=== PATIENT | male | born 1955 | race Caucasian/White ===

== ENCOUNTER 2022-04-02 09:30 | Outpatient (CLI) | payer MEDICARE | END 2022-04-02 09:31 | disposition home or self-care (01) | LOC: PET 09:30 | PROVIDERS: ATTEND Internal Medicine Hematology & Oncology | DX: C25.2 Malignant neoplasm of tail of pancreas (principal); C78.7 Secondary malignant neoplasm of liver and intrahepatic bile duct; C78.1 Secondary malignant neoplasm of mediastinum; C78.02 Secondary malignant neoplasm of left lung; C78.01 Secondary malignant neoplasm of right lung | CPT/HCPCS: 78815; A9552 ==

== ENCOUNTER 2022-04-03 08:32 | Day surgery (SDC) | payer MEDICARE ==
[2022-04-03 08:45] LABS: #Eosinphils 0.4 thou/uL (0.0-0.7); #Lymphocytes 1.4 thou/uL (1.20-3.40); #Monocytes 0.9 thou/uL (0.11-0.59); #Neutrophils 4.3 thou/uL (1.40-6.50); %Basophils 0.1 % (0.0-1.0); %Eosinophils 6.2 % (0.0-10.0); %Lymphocytes 19.2 % (21.0-51.0); %Monocytes 13.2 % (0.0-10.0); %Neutrophils 61.3 % (42.0-75.0); Hemoglobin 12.9 g/dL (14.0-18.0); Mean Corpuscular HGB CONC 32.3 g/dL (32.0-36.0); Mean Corpuscular Hemoglobin 29.3 pg (27.0-31.0); Mean Corpuscular Volume 90.5 fl (78.0-98.0); Mean Platelet Volume 6.8 fL (7.4-10.4); Platelet Count 235 10x3/uL (130-400); RBC Distribution Width 13.3 % (11.5-14.5); Red Blood Cell (RBC) Count 4.41 mill/uL (4.70-6.10); White Blood Cell (WBC) Count 7.1 10x3/uL (4.8-10.8)
[2022-04-03 09:00] LABS: Prothrombin Time 13.6 sec (12.0-14.7)
[2022-04-03 09:01] LABS: PTT 31.4 sec (22.9-36.1)
[2022-04-03 09:53] VITALS: BP 103/71; TEMP 97.6
== END 2022-04-03 14:30 | disposition home or self-care (01) ==
LOC: CT 08:32
PROVIDERS: ATTEND Internal Medicine Hematology & Oncology
PROC: 0FB23ZX Excision of Left Lobe Liver, Percutaneous Approach, Diagnostic (ICD-10-PCS; principal; 2022-04-03)
DX: C78.7 Secondary malignant neoplasm of liver and intrahepatic bile duct (principal); C25.9 Malignant neoplasm of pancreas, unspecified; I10 Essential (primary) hypertension; I25.10 Atherosclerotic heart disease of native coronary artery without angina pectoris; E78.00 Pure hypercholesterolemia, unspecified; K21.9 Gastro-esophageal reflux disease without esophagitis; Z79.899 Other long term (current) drug therapy
CPT/HCPCS: 47000; 77012; 85025; 85610; 85730; 88307; 88341; 88342

== ENCOUNTER 2022-04-04 19:26 | Inpatient (IN) | payer MEDICARE ==
[~2022-04-04 19:26] MED LIST: Fentanyl 100 MCG/2 ML VIAL ONE; Iopamidol-370 76% 500 ML 1 ML ONE; Midazolam HCl 2 mg/2 ml Vial ONE; Ondansetron PF 4 MG/2 ML Vial ONE; Sodium Bicarbonate 2.5 MEQ/5 ML VIAL ONE
[2022-04-04] MEDS ORDERED: Acetaminophen 500 MG TAB ONE (19:58)
[2022-04-04 20:35] LABS: #Eosinphils 0.2 thou/uL (0.0-0.7); #Monocytes 1.1 thou/uL (0.11-0.59); #Neutrophils 7.4 thou/uL (1.40-6.50); %Basophils 0.1 % (0.0-1.0); %Eosinophils 1.7 % (0.0-10.0); %Lymphocytes 10.6 % (21.0-51.0); %Monocytes 11.6 % (0.0-10.0); %Neutrophils 76.1 % (42.0-75.0); Hemoglobin 12.1 g/dL (14.0-18.0); Mean Corpuscular HGB CONC 32.6 g/dL (32.0-36.0); Mean Corpuscular Hemoglobin 29.3 pg (27.0-31.0); Mean Corpuscular Volume 89.8 fl (78.0-98.0); Mean Platelet Volume 7.1 fL (7.4-10.4); Platelet Count 179 10x3/uL (130-400); RBC Distribution Width 13.2 % (11.5-14.5); Red Blood Cell (RBC) Count 4.12 mill/uL (4.70-6.10); White Blood Cell (WBC) Count 9.7 10x3/uL (4.8-10.8)
[2022-04-04 20:50] LABS: ALT (SGPT) 42 U/L (8-55); AST (SGOT) 65 U/L (5-34); Albumin 3.6 g/dL (3.4-4.8); Alkaline Phosphatase 196 U/L (40-110); Anion Gap 14 mmol/L (10-20); BUN (Urea Nitrogen) 15 mg/dL (8.4-25.7); Bilirubin, Total 0.7 mg/dL (0.2-1.2); Calc. Creatinine Clearance 0 mL/min (70-130); Calcium 8.5 mg/dL (7.8-10.44); Carbon Dioxide 21 mmol/L (23-31); Chloride 103 mmol/L (98-107); Estimated GFR 91; Globulin 2.9 g/dL (2.4-3.5); Glucose 120 mg/dL (80-115); Potassium 4.2 mmol/L (3.5-5.1); Protein, Total 6.5 g/dL (5.8-8.1); Sodium 134 mmol/L (136-145)
[2022-04-04 21:45] LABS: Bacteria/HPF None Seen HPF (None Seen); Bilirubin Negative (Negative); Blood, Urine Trace (Negative); Clarity Clear (Clear); Glucose, Urine (Dipstick) Normal (Negative); Ketone, Urine Negative (Negative); Leukocyte Negative Leu/uL (Negative); Nitrite Negative (Negative); Protein, Urine (Dipstick) 50 mg/dL (Neg-Trace); Squamous Epithelial 0-3 HPF (0-3); Urobilinogen 3 mg/dL (Less than 2); WBC/HPF 0-3 HPF (0-3); pH, Urine 5.5 (5.0-9.0)
[2022-04-04 21:46] LABS: Specific Gravity, Urine Greater than 1.065 (1.002-1.036)
[2022-04-04 22:10] LABS: SARS-CoV-2 NAA Rapid Test Not Detected (NotDetected)
[2022-04-04] MEDS ORDERED: Piperacillin/Tazobactam 3.375 GM VIAL ONE (22:44)
[2022-04-05] MEDS ORDERED: Vancomycin 1 GM/200 ML (FROZEN) BAG ONE (00:25)
[2022-04-05 02:23] VITALS: BMI 30.1
[2022-04-05] MEDS: Sodium Chloride 0.9% 1,000 ML IV SCH ×2 (03:30→17:49)
[2022-04-05] MEDS: guaiFENesin/Codeine 200 mg/20 mg 10 ml Cup PO PRN ×2 (03:31→21:17)
[2022-04-05] MEDS: HYDROcodone/Acetaminophen 5/325 mg Tablet PO PRN ×2 (03:31→19:09)
[2022-04-05] MEDS: cefTRIAXone\\ROCEPHIN 1 GM in Sodium Chloride 0.9% 100 ML IVPB SCH (04:56)
[2022-04-05 06:25] LABS: #Eosinphils 0.2 thou/uL (0.0-0.7); #Lymphocytes 0.9 thou/uL (1.20-3.40); #Neutrophils 5.9 thou/uL (1.40-6.50); %Eosinophils 2.7 % (0.0-10.0); %Lymphocytes 11.4 % (21.0-51.0); %Neutrophils 73.9 % (42.0-75.0); Mean Corpuscular HGB CONC 32.6 g/dL (32.0-36.0); Mean Corpuscular Hemoglobin 29.3 pg (27.0-31.0); Mean Platelet Volume 7.2 fL (7.4-10.4); Platelet Count 141 10x3/uL (130-400); RBC Distribution Width 13.2 % (11.5-14.5); Red Blood Cell (RBC) Count 3.76 mill/uL (4.70-6.10)
[2022-04-05 06:44] LABS: Anion Gap 13 mmol/L (10-20); BUN (Urea Nitrogen) 12 mg/dL (8.4-25.7); Calc. Creatinine Clearance 119 mL/min (70-130); Carbon Dioxide 22 mmol/L (23-31); Chloride 105 mmol/L (98-107); Estimated GFR 98; Glucose 117 mg/dL (80-115); Potassium 3.9 mmol/L (3.5-5.1); Sodium 136 mmol/L (136-145)
[2022-04-05] MEDS: Loratadine 10 MG TAB PO SCH (09:35)
[2022-04-05] MEDS: Famotidine 20 MG TAB PO SCH ×2 (09:36→21:17)
[2022-04-05] MEDS: Losartan 25 MG TAB PO SCH (09:44)
[2022-04-05] MEDS: Fluticasone Propionate Nasal Spray 16 gm Bottle NASAL SCH (10:14)
[2022-04-05] MEDS: Vitamin E 400 UNITS CAP PO SCH (11:50)
[2022-04-05] MEDS: Cholecalciferol (Vitamin D3) 400 UNITS TAB PO SCH (11:50)
[2022-04-05] MEDS: Ondansetron PF 4 MG/2 ML Vial IVP PRN (11:50)
[2022-04-05] MEDS: Rosuvastatin 20 MG TAB PO SCH (21:17)
[2022-04-06] MEDS: cefTRIAXone\\ROCEPHIN 1 GM in Sodium Chloride 0.9% 100 ML IVPB SCH (04:45)
[2022-04-06 05:46] LABS: #Eosinphils 0.4 thou/uL (0.0-0.7); #Lymphocytes 0.9 thou/uL (1.20-3.40); #Monocytes 0.8 thou/uL (0.11-0.59); #Neutrophils 4.9 thou/uL (1.40-6.50); %Basophils 0.1 % (0.0-1.0); %Lymphocytes 12.7 % (21.0-51.0); %Monocytes 11.5 % (0.0-10.0); %Neutrophils 70.8 % (42.0-75.0); Hemoglobin 10.6 g/dL (14.0-18.0); Mean Corpuscular HGB CONC 32.2 g/dL (32.0-36.0); Mean Corpuscular Volume 90.1 fl (78.0-98.0); Mean Platelet Volume 7.1 fL (7.4-10.4); Platelet Count 154 10x3/uL (130-400); RBC Distribution Width 13.1 % (11.5-14.5); Red Blood Cell (RBC) Count 3.66 mill/uL (4.70-6.10)
[2022-04-06 06:10] LABS: ALT (SGPT) 29 U/L (8-55); AST (SGOT) 42 U/L (5-34); Albumin 2.8 g/dL (3.4-4.8); Alkaline Phosphatase 146 U/L (40-110); Anion Gap 12 mmol/L (10-20); BUN (Urea Nitrogen) 13 mg/dL (8.4-25.7); Bilirubin, Total 0.6 mg/dL (0.2-1.2); Calc. Creatinine Clearance 116 mL/min (70-130); Calcium 8.1 mg/dL (7.8-10.44); Carbon Dioxide 23 mmol/L (23-31); Chloride 105 mmol/L (98-107); Estimated GFR 97; Globulin 2.7 g/dL (2.4-3.5); Glucose 107 mg/dL (80-115); Magnesium 2.1 mg/dL (1.6-2.6); Potassium 4.2 mmol/L (3.5-5.1); Protein, Total 5.5 g/dL (5.8-8.1); Sodium 136 mmol/L (136-145)
[2022-04-06] MEDS: Sodium Chloride 0.9% 1,000 ML IV SCH (07:44)
[2022-04-06] MEDS ORDERED: Iopamidol 370 76% 100 ML VIAL ONE (08:44)
[2022-04-06] MEDS ORDERED: Fluticasone Propionate Nasal Spray 16 gm Bottle NASAL SCH (09:00)
[2022-04-06] MEDS: Cholecalciferol (Vitamin D3) 400 UNITS TAB PO SCH (10:01)
[2022-04-06] MEDS: Famotidine 20 MG TAB PO SCH (10:01)
[2022-04-06] MEDS: Loratadine 10 MG TAB PO SCH (10:02)
[2022-04-06] MEDS: Losartan 25 MG TAB PO SCH (10:04)
[2022-04-06] MEDS: Fluticasone Propionate Nasal Spray 16 gm Bottle NASAL SCH (11:44)
[2022-04-06] MEDS: Vitamin E 400 UNITS CAP PO SCH (16:06)
[2022-04-06] MEDS: guaiFENesin/Codeine 200 mg/20 mg 10 ml Cup PO PRN ×2 (16:06→22:23)
[2022-04-06] MEDS: Acetaminophen 325 MG TAB PO PRN (18:01)
[2022-04-06] MEDS: Ondansetron PF 4 MG/2 ML Vial IVP PRN (20:59)
[2022-04-06] MEDS: Rosuvastatin 20 MG TAB PO SCH (21:14)
[2022-04-06] MEDS: Chloraseptic Spray 180 ml Bottle PO PRN (22:23)
[2022-04-07] MEDS: HYDROcodone/Acetaminophen 5/325 mg Tablet PO PRN ×2 (00:13→21:28)
[2022-04-07] MEDS: Acetaminophen 325 MG TAB PO PRN ×2 (01:34→11:19)
[2022-04-07] MEDS: cefTRIAXone\\ROCEPHIN 1 GM in Sodium Chloride 0.9% 100 ML IVPB SCH (03:27)
[2022-04-07 06:23] LABS: #Eosinphils 0.4 thou/uL (0.0-0.7); #Lymphocytes 0.8 thou/uL (1.20-3.40); #Monocytes 0.8 thou/uL (0.11-0.59); #Neutrophils 3.6 thou/uL (1.40-6.50); %Eosinophils 6.9 % (0.0-10.0); %Lymphocytes 13.5 % (21.0-51.0); %Monocytes 14.2 % (0.0-10.0); %Neutrophils 65.3 % (42.0-75.0); Hemoglobin 10.6 g/dL (14.0-18.0); Mean Corpuscular HGB CONC 32.6 g/dL (32.0-36.0); Mean Corpuscular Hemoglobin 29.3 pg (27.0-31.0); Mean Corpuscular Volume 90.1 fl (78.0-98.0); Mean Platelet Volume 7.5 fL (7.4-10.4); Platelet Count 135 10x3/uL (130-400); RBC Distribution Width 13.1 % (11.5-14.5); White Blood Cell (WBC) Count 5.6 10x3/uL (4.8-10.8)
[2022-04-07 06:51] LABS: ALT (SGPT) 32 U/L (8-55); AST (SGOT) 44 U/L (5-34); Albumin 2.7 g/dL (3.4-4.8); Alkaline Phosphatase 175 U/L (40-110); Anion Gap 13 mmol/L (10-20); BUN (Urea Nitrogen) 11 mg/dL (8.4-25.7); Bilirubin, Total 0.5 mg/dL (0.2-1.2); Calc. Creatinine Clearance 121 mL/min (70-130); Carbon Dioxide 23 mmol/L (23-31); Chloride 104 mmol/L (98-107); Estimated GFR 98; Globulin 2.7 g/dL (2.4-3.5); Glucose 99 mg/dL (80-115); Potassium 3.8 mmol/L (3.5-5.1); Protein, Total 5.4 g/dL (5.8-8.1); Sodium 136 mmol/L (136-145)
[2022-04-07] MEDS: Cholecalciferol (Vitamin D3) 400 UNITS TAB PO SCH (09:05)
[2022-04-07] MEDS: Apixaban 5 MG TAB PO SCH ×2 (09:05→21:30)
[2022-04-07] MEDS: Losartan 25 MG TAB PO SCH (09:05)
[2022-04-07] MEDS: Loratadine 10 MG TAB PO SCH (09:06)
[2022-04-07] MEDS: Fluticasone Propionate Nasal Spray 16 gm Bottle NASAL SCH (09:06)
[2022-04-07] MEDS: Ondansetron PF 4 MG/2 ML Vial IVP PRN ×2 (12:56→18:17)
[2022-04-07] MEDS: Vitamin E 400 UNITS CAP PO SCH (12:56)
[2022-04-07] MEDS ORDERED: Ipratropium/Albuterol 3 ML NEB NEB PRN (13:39)
[2022-04-07] MEDS: Chloraseptic Spray 180 ml Bottle PO PRN (21:28)
[2022-04-07] MEDS: Doxycycline 100 MG in Sodium Chloride 0.9% 100 ML IVPB SCH ×2 (21:29→21:31)
[2022-04-07] MEDS: Rosuvastatin 20 MG TAB PO SCH (21:30)
[2022-04-07] MEDS: guaiFENesin/Codeine 200 mg/20 mg 10 ml Cup PO PRN (21:31)
[2022-04-08] MEDS: cefTRIAXone\\ROCEPHIN 1 GM in Sodium Chloride 0.9% 100 ML IVPB SCH (04:30)
[2022-04-08] MEDS: guaiFENesin/Codeine 200 mg/20 mg 10 ml Cup PO PRN ×2 (04:39→11:48)
[2022-04-08 06:10] LABS: #Eosinphils 0.3 thou/uL (0.0-0.7); #Lymphocytes 0.6 thou/uL (1.20-3.40); #Monocytes 0.6 thou/uL (0.11-0.59); #Neutrophils 2.8 thou/uL (1.40-6.50); %Basophils 0.7 % (0.0-1.0); %Eosinophils 6.1 % (0.0-10.0); %Lymphocytes 14.3 % (21.0-51.0); %Monocytes 13.7 % (0.0-10.0); %Neutrophils 65.3 % (42.0-75.0); Hemoglobin 10.4 g/dL (14.0-18.0); Mean Corpuscular HGB CONC 31.6 g/dL (32.0-36.0); Mean Corpuscular Hemoglobin 28.4 pg (27.0-31.0); Mean Corpuscular Volume 89.9 fl (78.0-98.0); Mean Platelet Volume 7.2 fL (7.4-10.4); Platelet Count 150 10x3/uL (130-400); RBC Distribution Width 13.1 % (11.5-14.5); Red Blood Cell (RBC) Count 3.65 mill/uL (4.70-6.10); White Blood Cell (WBC) Count 4.3 10x3/uL (4.8-10.8)
[2022-04-08 06:15] LABS: Anion Gap 12 mmol/L (10-20); BUN (Urea Nitrogen) 13 mg/dL (8.4-25.7); Calc. Creatinine Clearance 121 mL/min (70-130); Calcium 8.1 mg/dL (7.8-10.44); Carbon Dioxide 24 mmol/L (23-31); Chloride 103 mmol/L (98-107); Estimated GFR 98; Glucose 103 mg/dL (80-115); Potassium 3.7 mmol/L (3.5-5.1); Sodium 135 mmol/L (136-145)
[2022-04-08] MEDS: Apixaban 5 MG TAB PO SCH (09:14)
[2022-04-08] MEDS: Losartan 25 MG TAB PO SCH ×2 (09:14→09:17)
[2022-04-08] MEDS: Vitamin E 400 UNITS CAP PO SCH (09:15)
[2022-04-08] MEDS: Cholecalciferol (Vitamin D3) 400 UNITS TAB PO SCH (09:15)
[2022-04-08] MEDS: Fluticasone Propionate Nasal Spray 16 gm Bottle NASAL SCH (09:16)
[2022-04-08] MEDS: Loratadine 10 MG TAB PO SCH (09:27)
[2022-04-08 11:53] VITALS: BP 100/64; TEMP 98.3
[2022-04-14] MEDS ORDERED: Apixaban 5 MG TAB PO SCH (09:00)
== END 2022-04-08 16:24 | disposition home or self-care (01) | DRG 815 ==
LOC: ERS 19:26 → MSONC 23:06 → OBSVTOIN 04-06 18:09
PROVIDERS: ADMIT Internal Medicine; ATTEND Internal Medicine
DX: D73.5 Infarction of spleen (principal); C25.9 Malignant neoplasm of pancreas, unspecified; C78.02 Secondary malignant neoplasm of left lung; C78.01 Secondary malignant neoplasm of right lung; C78.7 Secondary malignant neoplasm of liver and intrahepatic bile duct; C77.9 Secondary and unspecified malignant neoplasm of lymph node, unspecified; Z20.822 Contact with and (suspected) exposure to COVID-19; I10 Essential (primary) hypertension; E78.5 Hyperlipidemia, unspecified; K21.9 Gastro-esophageal reflux disease without esophagitis; I25.10 Atherosclerotic heart disease of native coronary artery without angina pectoris; E78.00 Pure hypercholesterolemia, unspecified; K86.89 Other specified diseases of pancreas; Z86.718 Personal history of other venous thrombosis and embolism; Z86.711 Personal history of pulmonary embolism; Z79.899 Other long term (current) drug therapy; Z79.01 Long term (current) use of anticoagulants; Z98.890 Other specified postprocedural states; Z82.49 Family history of ischemic heart disease and other diseases of the circulatory system
CPT/HCPCS: 36415; 71045; 74175; 74177; 80048; 80053; 81003; 81015; 83605; 83735; 84145; 85025; 87040; 87086; 93306; 96365; 96366; 96367; 96372; 96375; G0378; J0696; J1650; J2250; J2405; J2543; J3010; J3370-JW; J3490; J7050; Q9967

== ENCOUNTER 2022-04-20 06:39 | Day surgery (SDC) | payer MEDICARE ==
[2022-04-17 10:48] VITALS: BMI 28.8
[2022-04-20] MEDS ORDERED: Ondansetron PF 4 MG/2 ML Vial ONE (07:53)
[2022-04-20] MEDS ORDERED: Midazolam HCl 2 mg/2 ml Vial ONE (08:31)
[2022-04-20] MEDS ORDERED: fentaNYL PF 100 MCG/2 ML SYRINGE ONE (08:32)
[2022-04-20] MEDS ORDERED: Propofol 500 MG/50 ML VIAL ONE (08:32)
[2022-04-20] MEDS ORDERED: CEFAZOLIN 2 GM VIAL ONE (08:33)
[2022-04-20] MEDS ORDERED: Sodium Chloride 0.9% 100 ML ONE (08:33)
[2022-04-20] MEDS ORDERED: Lidocaine 1% PF 5 ML VIAL ONE (08:45)
[2022-04-20] MEDS ORDERED: Bupivacaine/Epinephrine 0.25% 30 ML VIAL ONE (08:45)
[2022-04-20] MEDS ORDERED: Lidocaine 2% PF 5 ML VIAL ONE (08:47)
== END 2022-04-20 10:50 | disposition home or self-care (01) ==
LOC: SDC 06:39
PROVIDERS: ATTEND Surgery
PROC: 0JH60WZ Insertion of Totally Implantable Vascular Access Device into Chest Subcutaneous Tissue and Fascia, Open Approach (ICD-10-PCS; principal; 2022-04-20)
PROC: 02HV33Z Insertion of Infusion Device into Superior Vena Cava, Percutaneous Approach (ICD-10-PCS; 2022-04-20)
DX: C25.9 Malignant neoplasm of pancreas, unspecified (principal); Z79.01 Long term (current) use of anticoagulants; Z79.899 Other long term (current) drug therapy
CPT/HCPCS: 36561; 71045; 93005; C1788; 93010; J1642; J2001; J2250; J2405; J2704; J3490

== ENCOUNTER 2022-09-29 10:40 | Day surgery (SDC) | payer MEDICARE ==
[2022-09-29] MEDS ORDERED: Acetaminophen 500 MG TAB PO SCH (11:15)
[2022-09-29] MEDS ORDERED: diphenhydrAMINE 25 MG CAP PO SCH (11:15)
[2022-09-29] MEDS ORDERED: Ondansetron HCl/PF 10 MG in Sodium Chloride 0.9% 50 ML IVPB SCH (12:00)
[2022-09-29] MEDS ORDERED: Acetaminophen 500 MG TAB ONE (12:35)
[2022-09-29] MEDS ORDERED: diphenhydrAMINE 25 MG CAP ONE (12:35)
[2022-09-29 17:38] VITALS: BP 130/71; TEMP 98.1
== END 2022-09-29 17:39 | disposition home or self-care (01) ==
LOC: ONC/OP 10:40
PROVIDERS: ATTEND Internal Medicine Hematology & Oncology
DX: D64.9 Anemia, unspecified (principal)
CPT/HCPCS: 36430; 86850; 86900; 86901; 86920; 96374; P9016; J1642; J2405